=== PATIENT | male | born 1990 | race Caucasian/White ===

== ENCOUNTER → 2017-02-05 | Outpatient (CLI) | payer BC | END | disposition home or self-care (01) | LOC: C.RDSM 13:47 | PROVIDERS: ATTEND Orthopaedic Surgery Sports Medicine | DX: S92.009A Unspecified fracture of unspecified calcaneus, initial encounter for closed fracture (principal); S99.912A Unspecified injury of left ankle, initial encounter; X58.XXXA Exposure to other specified factors, initial encounter ==

== ENCOUNTER → 2017-02-06 | Outpatient (CLI) | payer BC ==
--- NOTE | 2017-02-06 12:08 | DIAGNOSTIC IMAGING REPORT ---
CT OF THE LEFT ANKLE WITHOUT CONTRAST CT DOSE: 217.69 mGy.cm CLINICAL HISTORY: Left ankle injury. Calcaneus fracture. TECHNIQUE: Axial images of the left ankle were obtained without IV contrast. Sagittal and coronal reconstructions were viewed. COMPARISON STUDY: Left ankle and heel radiographs February 05, 2017. FINDINGS: Extensive soft tissue swelling of the left ankle is noted. There is no ankle mortise widening. There is a minimally displaced fracture of the fibular tip. There is no acute fracture of the distal left tibia. Talar dome is intact. There is a suspected os trigonum. There is a markedly displaced, comminuted left calcaneal fracture. Multiple bone fragments are present. Fracture extends through the posterior facet of the subtalar joint. The fracture is displaced and depressed. Fracture extends to the calcaneocuboid articulation. No acute fracture of the cuboid is identified. No acute fracture is identified within the left midfoot. IMPRESSION: 1. Markedly comminuted, displaced left calcaneal fracture. Fracture is displaced and depressed at the posterior facet of the subtalar joint and extends to the calcaneocuboid articulation. 2. Minimally displaced avulsion fracture of the fibular tip. 3. Soft tissue swelling of left ankle. No ankle mortise widening. Electronically signed by: Carlos Bryant M.D. 02/06/2017 12:06 PM Dictated Date/Time: 02/06/2017 11:57 AM
== END | disposition home or self-care (01) ==
LOC: C.CTS 11:45
PROVIDERS: ATTEND Orthopaedic Surgery Sports Medicine
DX: S92.002A Unspecified fracture of left calcaneus, initial encounter for closed fracture (principal); S82.402A Unspecified fracture of shaft of left fibula, initial encounter for closed fracture; X58.XXXA Exposure to other specified factors, initial encounter